=== PATIENT | male | born 1940 | race Caucasian/White ===

== ENCOUNTER → 2016-06-17 | Outpatient (CLI) | payer MEDICARE | LOC: GMAM 10:58 | PROVIDERS: ATTEND Family Medicine | DX: R31.29 Other microscopic hematuria (principal); Z12.5 Encounter for screening for malignant neoplasm of prostate | CPT/HCPCS: 87086; G0103 ==

== ENCOUNTER → 2016-07-12 | Outpatient (CLI) | payer MEDICARE | END | disposition home or self-care (01) | LOC: GMAM 11:06 | PROVIDERS: ATTEND Family Medicine | DX: N41.0 Acute prostatitis (principal); R97.20 Elevated prostate specific antigen [PSA] ==

== ENCOUNTER → 2016-12-29 | Outpatient (CLI) | payer MEDICARE | END | disposition home or self-care (01) | LOC: GMAM 10:28 | PROVIDERS: ATTEND Family Medicine | DX: R97.20 Elevated prostate specific antigen [PSA] (principal) ==

== ENCOUNTER → 2017-01-13 | Outpatient (CLI) | payer MEDICARE ==
--- NOTE | 2017-01-13 11:59 | MRI ---
EXAM DESCRIPTION: Lumbar Spine w/o Contrast CLINICAL HISTORY: 76 years, Male, LUMBAR RADICULOPATHY right leg pain COMPARISON: Plain radiograph January 05 FINDINGS: Sagittal and axial sequences. Left renal cyst about 4 x 2.5 cm. Normal bone marrow signal except for Modic type changes particularly at L2-3. Conus terminates at L1. Moderate right curvature probably degenerative. Narrowing L1-2 with bulging disc osteophyte asymmetric to the right. Facet degenerative change. Narrowing L2-3 with bulging disc osteophyte extends exit foramen bilaterally more on the left. Left foraminal narrowing. Facet degenerative change. Left lateral recess encroachment. At L3-4 narrowing with diffuse bulging disc extending into the exit foramen bilaterally more on the left. Severe facet degenerative change particularly on the right. Impingement on the right side of the thecal sac and right lateral recess. Mild central stenosis. Narrowing L4-5 with bulging disc osteophyte asymmetric to the left. Facet degenerative change. Impingement on the right lateral recess and exiting right L4 root. Mild bulge and facet degenerative change L5-S1. IMPRESSION: 1. Narrowing L3-4 with bulging disc osteophyte. Severe facet degenerative change. Impingement on the right-sided thecal sac and right lateral recess. Mild central stenosis. 2. Narrowing L4-5 with bulging disc osteophyte asymmetric to the left. Facet degenerative change. Impingement on the right lateral recess and exiting right L4 root 3. Other moderately advanced degenerative changes as discussed Electronically signed by: Mariano Riley MD 01/13/2017 11:58 AM CDT
== END | disposition home or self-care (01) ==
LOC: MRI 08:43
PROVIDERS: ATTEND Family Medicine
DX: M54.16 Radiculopathy, lumbar region (principal)

== ENCOUNTER → 2017-06-22 | Outpatient (CLI) | payer MEDICARE | LOC: GMAM 10:45 | PROVIDERS: ATTEND Family Medicine | DX: R97.20 Elevated prostate specific antigen [PSA] (principal) ==

== ENCOUNTER → 2018-03-21 | Outpatient (CLI) | payer MEDICARE ==
--- NOTE | 2018-03-21 17:16 | US ---
US THYROID CLINICAL STATEMENT: I25.10 AND E04.1. . No palpable mass. No thyroid surgery or therapy. COMPARISON: None FINDINGS: Size right thyroid lobe: 4.8 x 2.6 x 1.9 cm Size left thyroid lobe: 4.1 x 2.0 x 1.6 cm Size isthmus: 0.26 cm Estimated total number of nodules greater than or equal to 1 cm: 1 Nodule 1: Size: 1.3 x 1.1 x 0.8 cm Location: Right Lower Composition: solid or almost completely solid: 2 points Echogenicity: hypoechoic: 2 points Shape: wider than tall: 0 points Margins: smooth: 0 points Echogenic foci: none: 0 points ACR Total Points: 4; ACR TI-RADS risk category: TR4 - moderately suspicious nodule. Nodule 2: Size: 0.9 x 0.7 x 0.8 cm Location: Right Upper Composition: solid or almost completely solid: 2 points Echogenicity: hypoechoic: 2 points Shape: wider than tall: 0 points Margins: smooth: 0 points Echogenic foci: none: 0 points ACR Total Points: 4; ACR TI-RADS risk category: TR4 - moderately suspicious nodule. In the tissues surrounding the thyroid gland, no dominant abnormal solid mass, no distinct cyst. No abnormal calcification or parenchymal edema. Normal vascularity. Overlying skin is unremarkable. IMPRESSION: 1. Nodule 1: ACR TI-RADS 2017 Category TR4. Recommend: Follow-up. Recommendations according to [employer] Best [employer] recommendations, following ACR TI-RADS 2017 guidelines. Please see below*. 2. Nodule 2: ACR TI-RADS 2017 Category TR 4. Recommend: No further follow-up. 3. Soft tissue around the thyroid gland is unremarkable. *ACR TI-RADS 2017 Recommendations: TR1: No FNA or follow up TR2: No FNA or follow up TR3: FNA if >/= 2.5 cm, follow up if 1.5 - 2.4 cm in 1, 3, and 5 years TR4: FNA if >/= 1.5 cm, follow up if 1.0 - 1.4 cm in 1, 2, 3, and 5 years TR5: FNA if >/= 1.0 cm, follow up if 0.5 - 0.9 cm every year for 5 years ACR TI-RADS recommends that no more than two nodules with the highest ACR TI-RADS total point should be biopsied and no more than four nodules should be followed. Electronically signed by: Avel Mcgovern MD 03/21/2018 5:14 PM [facility]
--- NOTE | 2018-03-21 17:20 | US ---
EXAM DESCRIPTION: Extremity,Lower Carlos Arteries: Ultrasound. CLINICAL HISTORY: ATHEROSCLEROTIC DISEASE COMPARISON: Ultrasound of the thyroid gland on the same visit. TECHNIQUE: Doppler evaluation of the bilateral lower extremity arterial flow waveforms and velocities. FINDINGS: Arterial waveforms in the right lower extremity are triphasic from the right common femoral artery through the right posterior tibial artery. Monophasic in the right dorsalis pedis artery.. Arterial waveforms in the left lower extremity are triphasic from the left common femoral artery through the left popliteal artery. Biphasic in the left posterior tibial artery and peroneal artery. Blunted monophasic in the left dorsalis pedis artery.. Comments: Significant differential in velocity increased more than 200% in the right dorsalis pedis compared to the left. IMPRESSION: Velocity and waveform in the left or cells pedis artery is consistent with significant atherosclerotic occlusive disease in the proximal or distal left anterior tibial artery. Probably some degree of occlusive disease in the right proximal or distal anterior tibial artery. Consider correlation with bilateral lower extremity CTA. Electronically signed by: Avel Mcgovern MD 03/21/2018 5:19 PM [facility]
== END ==
LOC: US 09:56
PROVIDERS: ATTEND Family Medicine
DX: I25.10 Atherosclerotic heart disease of native coronary artery without angina pectoris (principal); E04.1 Nontoxic single thyroid nodule

== ENCOUNTER → 2018-07-11 | Outpatient (CLI) | payer MEDICARE | LOC: GMAM 12:00 | PROVIDERS: ATTEND Family Medicine | DX: E04.1 Nontoxic single thyroid nodule (principal); Z12.5 Encounter for screening for malignant neoplasm of prostate | CPT/HCPCS: 84439; 84443; G0103 ==

== ENCOUNTER → 2019-07-16 | Outpatient (CLI) | payer MEDICARE | LOC: GMAM 10:48 | PROVIDERS: ATTEND Family Medicine | DX: I10 Essential (primary) hypertension (principal); Z12.5 Encounter for screening for malignant neoplasm of prostate ==

== ENCOUNTER 2019-08-15 11:13 | Observation (INO) | payer MEDICARE ==
--- NOTE | 2019-08-15 11:36 | ED.PDOC ---
History of Present Illness - General Time Seen by Provider: 08/15/19 11:16 Source: patient, RN notes reviewed, Vital Signs reviewed Exam Limitations: no limitations - History of Present Illness Initial Comments: Pt is a 79 yo male with PMH of HTN who was sent to ED from clinic for COVID testing and possible anemia. States for the past 2 days, he has had crampy, lower abdominal pain and has vomited 8-10 times with nonbloody emesis. Also states he has had frequent loose stools the past 2 days that started off as "white colorred" then became dark and tarry and now are more normal colored. Denies fever, chills, cough, body aches, CP, SOB, near syncope. States he was concerned his symptoms were due to COVID 19 so went to clinic for test today and they told him he looked pale and to come to ED for evaluation of anemia and COVID testing. Pt is on BP meds, but takes no blood thinners. Allergies/Adverse Reactions: Allergies NO KNOWN ALLERGY Allergy (Verified 08/15/19 11:42) Review of Systems - Review of Systems Constitutional: Denies: chills, fever, weakness EENTM: Denies: nose congestion, throat pain Respiratory: Denies: cough, short of breath, wheezing Cardiology: Denies: chest pain, edema, palpitations, syncope Gastrointestinal/Abdominal: States: abdominal pain, diarrhea, nausea, vomiting Genitourinary: Denies: dysuria, frequency, hematuria Musculoskeletal: Denies: back pain, neck pain Skin: States: no symptoms reported Neurological: Denies: headache, paresthesia Hematologic/Lymphatic: Denies: easy bleeding, easy bruising All other Systems: Reviewed and Negative Family Medical History - Family History Father Family History: No Known Living Status: Hx Family Asthma: No Hx Family Congestive Heart Failure: No Hx Family Hypertension: Yes Hx Family Stroke: Yes Hx Cardiac Disease: Yes Hx Family Diabetes: No Hx Family Cancer: Yes - MOTHER Hx Family;Other: FATHER FROM [place] AND MOTHER FROM CANCER Physical Exam - Physical Exam General Appearance: Alert, No apparent distress, Well Developed, Well Groomed Ears, Nose, Throat: normal pharynx Neck: non-tender, full range of motion, supple Respiratory: chest non-tender, lungs clear, normal breath sounds, no respiratory distress, no accessory muscle use Cardiovascular/Chest: no edema, no JVD, no murmur, irregularly irregular Gastrointestinal/Abdominal: soft, no pulsatile mass, other - Mild TTP left abdomen. No guarding Rectal Exam: other - No hemorrhoids. Light brown stool with streks of BRB Back Exam: normal inspection, no CVA tenderness, no vertebral tenderness Extremity: non-tender, normal inspection, no pedal edema Neurologic: no motor/sensory deficits, alert, normal mood/affect, oriented x 3 Skin Exam: normal color, warm/dry Progress - Progress Progress: 08/15/19 13:18 I have discussed with Dr. garcia, pt PCP. Pt has new onset afib and GI bleed. He is rate controlled in afib and VS have been stable. Recommends no anticoagulation at this time due to GI bleed and admit to hospitalist for observation. Pt is agreeable to admission. 08/15/19 13:22 D/W Tim Torres, he will place in Obs. 08/15/19 13:25 Pt prresents to ED from clinic with 2 day h/o crampy abdominal pain, N/V, loose stools and dark colored stools. Hgb 12.8. Pt is in new onset afib and has been rrate controlled in ED w/o medications. CT shows thickened wall of distal stomach. possibly has gastrittis causing upper GI bleed. He is stable at this time. i have d/w his PCP and recommends obs admission and trend H/H. He rrecommends not starting anticoagulation at this time for afib due to GI bleed and they will evaluate for this during obs admission. - Results/Orders Results/Orders: CT A/P IMPRESSION: Thick-walled distal stomach. See above. Mild edematous changes around the pancreas. Correlate with serum amylase and lipase values. 08/15/19 11:30 IV:Start .ONCE 08/15/19 11:31 Hold Metformin x 48Hrs [id number] 08/15/19 11:45 EKG .ONCE 08/15/19 11:55 SARS-COV2 PCR HIGH RISK Stat Laboratory Results - last 24 hr 08/15/19 08/15/19 08/15/19 11:40 11:40 11:40 WBC 14.1 H RBC 4.25 L Hgb 12.8 L Hct 38.5 L MCV 90.6 MCH 30.1 MCHC 33.2 RDW 13.3 Plt Count 221 MPV 8.6 Absolute Neuts (auto) 11.60 H Absolute Lymphs (auto) 1.40 Absolute Monos (auto) 1.00 H Absolute Eos (auto) 0.00 Absolute Basos (auto) 0.10 Neutrophils % 82.1 H Lymphocytes % 9.8 L Monocytes % 7.4 Eosinophils % 0.2 L Basophils % 0.5 PT 10.7 INR 1.08 PTT (SP) 23.9 Sodium 134 L Potassium 3.9 Chloride 102 Carbon Dioxide 23 Anion Gap 12.9 BUN 30 H Creatinine 1.35 H BUN/Creatinine Ratio 22.2 H Random Glucose 135 H Serum Osmolality 276.5 Calcium 9.6 Total Bilirubin 1.0 AST 22 ALT 19 Alkaline Phosphatase 71 Troponin I Serum Total Protein 7.3 Albumin 4.1 Globulin 3.2 Albumin/Globulin Ratio 1.3 Lipase Urine Color Urine Appearance Urine pH Ur Specific [place] Urine Protein Urine Glucose (UA) Urine Ketones Urine Blood Urine Nitrite Urine Bilirubin Urine Urobilinogen Ur Leukocyte Esterase Urine RBC Urine WBC Ur Epithelial Cells Urine Bacteria Stool Occult Blood 08/15/19 08/15/19 08/15/19 11:40 11:40 11:47 WBC RBC Hgb Hct MCV MCH MCHC RDW Plt Count MPV Absolute Neuts (auto) Absolute Lymphs (auto) Absolute Monos (auto) Absolute Eos (auto) Absolute Basos (auto) Neutrophils % Lymphocytes % Monocytes % Eosinophils % Basophils % PT INR PTT (SP) Sodium Potassium Chloride Carbon Dioxide Anion Gap BUN Creatinine BUN/Creatinine Ratio Random Glucose Serum Osmolality Calcium Total Bilirubin AST ALT Alkaline Phosphatase Troponin I < 0.02 Serum Total Protein Albumin Globulin Albumin/Globulin Ratio Lipase 27 Urine Color Urine Appearance Urine pH Ur Specific [place] Urine Protein Urine Glucose (UA) Urine Ketones Urine Blood Urine Nitrite Urine Bilirubin Urine Urobilinogen Ur Leukocyte Esterase Urine RBC Urine WBC Ur Epithelial Cells Urine Bacteria Stool Occult Blood Positive 08/15/19 12:30 WBC RBC Hgb Hct MCV MCH MCHC RDW Plt Count MPV Absolute Neuts (auto) Absolute Lymphs (auto) Absolute Monos (auto) Absolute Eos (auto) Absolute Basos (auto) Neutrophils % Lymphocytes % Monocytes % Eosinophils % Basophils % PT INR PTT (SP) Sodium Potassium Chloride Carbon Dioxide Anion Gap BUN Creatinine BUN/Creatinine Ratio Random Glucose Serum Osmolality Calcium Total Bilirubin AST ALT Alkaline Phosphatase Troponin I Serum Total Protein Albumin Globulin Albumin/Globulin Ratio Lipase Urine Color Yellow Urine Appearance Clear Urine pH 5.0 Ur Specific [place] 1.015 Urine Protein Negative Urine Glucose (UA) Negative Urine Ketones Negative Urine Blood Negative Urine Nitrite Negative Urine Bilirubin Negative Urine Urobilinogen 0.2 Ur Leukocyte Esterase Negative Urine RBC 0 Urine WBC 0 Ur Epithelial Cells 0-1 Urine Bacteria 0 Stool Occult Blood - EKG/XRAY/CT Comments: Atrial fibrillation, rate 64. NML QRS interval. No ST abnormality Departure - Departure Clinical Impression: New onset atrial fibrillation Gastrointestinal bleed Qualifiers: GI bleed type/associated pathology: unspecified gastrointestinal hemorrhage type Qualified Code(s): K92.2 - Gastrointestinal hemorrhage, unspecified Anemia Qualifiers: Anemia type: unspecified type Qualified Code(s): D64.9 - Anemia, unspecified Abdominal pain Qualifiers: Abdominal location: generalized Qualified Code(s): R10.84 - Generalized abdominal pain Time of Disposition: 13:24 Disposition: Admit Patient Condition: Fair Referrals: Thiago Garcia MD [Primary Care Provider] - 1-2 Weeks Decision To Admit - Decistion To Admit Decision to Admit Reason: Admit from ER Decision to Admit Date: 08/15/19 - n Decision to Admit Time: 13:23
--- NOTE | 2019-08-15 13:04 | CT ---
EXAM DESCRIPTION: CT ABDOMEN AND PELVIS WITH CONTRAST CLINICAL HISTORY: left abd pain, vomiting, blood in stool COMPARISON: None Available. TECHNIQUE: CT of the abdomen and pelvis are performed during IV bolus administration of routine adult dose of nonionic iodinated IV contrast. No oral contrast was administered. FINDINGS: In the lower chest, the lung bases are clear. Heart size is prominent with moderate coronary calcification. CT abdomen Thick-walled appearance of the distal stomach could be gastritis. No ulcer is identified in this area. Correlate with endoscopic findings if indicated. The relatively low density appearance suggests edema of the gastric wall more likely than infiltrating neoplasm. Mild edematous changes around the pancreas. Correlate with serum amylase and lipase values. Duodenal bulb is prominent and fluid-filled. The liver, spleen, gallbladder, adrenal glands and right kidney are normal in appearance. Left kidney contains a cyst 4.3 cm. Tiny cysts in the lower cortex of the right kidney. No renal stones or hydronephrosis. No bowel dilatation to suggest obstruction. No free air or free fluid. CT pelvis Appendix appears normal. No inflammation around the cecum or terminal ileum or sigmoid colon. Bladder and distal ureters are negative for stones. Normal enhancement of pelvic vessels. No inguinal or lower pelvic adenopathy. Large prostate measures 5.1 cm in transverse dimension with moderate invagination of the bladder base. Lateral wall appears thickened. Bone window images are negative for fracture or lytic lesion. Advanced degenerative disc disease in the lumbar spine. Coronal and sagittal reformatted images confirm the findings. IMPRESSION: Thick-walled distal stomach. See above. Mild edematous changes around the pancreas. Correlate with serum amylase and lipase values. This exam was performed according to our departmental dose-optimization program, which includes automated exposure control, adjustment of the mA and/or kV according to patient size and/or use of iterative reconstruction technique. Total DLP equals 2822.47 mGycm. Electronically signed by: Valdez Zaragoza MD 08/15/2019 1:03 PM CDT
--- NOTE | 2019-08-15 13:53 | HP ---
SUPERVISING PHYSICIAN: Thiago Moses MD CHIEF COMPLAINT: Dark stools. HISTORY OF PRESENT ILLNESS: This is a 79 year-old male patient who had some nausea and vomiting that started yesterday around 3 o'clock. He states he started to have bowel movements that were first white in color but then turned to dark black. He was to see his primary care physician today who then referred him to Emergency Room for concern for a GI bleed. The patient was also concerned that he may have COVID-19 so therefore he was referred for testing for that as well. When he came to the Emergency Room he had a CT scan of the abdomen and pelvis that showed thick-walled distal stomach and mild edematous changes around the pancreas. Otherwise, there were no abnormalities. His lab showed a leukocytosis of 14,000 with a left shift of 82.1. Coagulations were normal, troponin negative. Mild elevation of BUN and creatinine to 30 and 1.35 respectively. He was guaiac positive as well, therefore, he was referred for admission to watch for precipitous drops in hemoglobin. He was also noted to have a new onset of atrial fibrillation, although the rate is controlled. He has not had any history of atrial fibrillation and not on any anticoagulation at this time. On examination, the patient is alert and oriented with no distress. PAST MEDICAL HISTORY: 1. Hypertension. 2. Hyperlipidemia. 3. Coronary artery disease. 4. Myocardial infarction in the past. 5. Peripheral vascular disease. PAST SURGICAL HISTORY: 1. Bilateral cataract removal. 2. PTCA stent. 3. Index finger fracture repair. 4. Hernia repair. CURRENT MEDICATIONS: Please see med rec list once verified in the computer. ALLERGIES: No known drug allergies. FAMILY HISTORY: Father at age 55 of [place]. Mother at age 68 of breast cancer. Two sisters, one from lung cancer. SOCIAL HISTORY: The patient is a nondrinker, nonsmoker, no illicit drugs. REVIEW OF SYSTEMS: CONSTITUTIONAL: No fever or chills, no recent weight loss or weight gain. HEENT: No headaches, vision changes, ear pain, sore throat, nasal congestion. CHEST: No cough, hemoptysis or pleuritic chest pain. . HEART: No chest pain, palpitations, edema. ABDOMEN: Positive for nausea and vomiting, abdominal pain. He did have some loose stools which were dark in color. ENDOCRINE: No polydipsia, polyuria, polyphagia, no heat or cold intolerance. GENITOURINARY: Denies dysuria, frequency or flank pain. . HEMATOLOGIC: No easy bruising or transfusion reaction. SKIN: No rashes, lesions or wounds. . NEUROLOGIC: No syncope, paresthesias or seizures. PHYSICAL EXAMINATION: VITAL SIGNS: Blood pressure 130/63, heart rate 70, respirations 20, temperature 99.0, oxygen saturation 100%. GENERAL: This is a 79 year-old male patient in no acute distress at this time. HEENT: The patient is awake, alert, and oriented. CHEST: Lungs are clear to auscultation bilaterally. CARDIOVASCULAR: Regular rate and rhythm, normal S1, S2. ABDOMEN: Soft, positive bowel sounds. No tenderness to palpation. EXTREMITIES: No edema, 2+ pulses, capillary refill less than 2 second. Labs and films are discussed in the history of present illness. ASSESSMENT: 1. Upper GI bleed. 2. Mild anemia. 3. Hypertension. 4. Hyperlipidemia. 5. New onset atrial fibrillation. 6. Acute kidney injury. 7. Acute gastroenteritis. PLAN: The patient will be admitted and we will do serial H&H. I will put him on some light IV fluids. He does have a history of diastolic heart failure with an ejection fraction of 55% on last echocardiogram but it showed grade 2 diastolic dysfunction. No anticoagulation for now. His rate is controlled so no active treatment for the atrial fibrillation. If he does have drops in his hemoglobin would schedule an EGD. Will hold off on any DVT prophylaxis given the positive guaiac. Put him on b.i.d. PPI and resume his home medications as well. #[id number] [facility]
[2019-08-15] MEDS ORDERED: SODIUM CHLORIDE 0.9% (FLUSH) 10 ML SYG IV PRN (14:48)
[2019-08-15] MEDS ORDERED: traMADol HCL 50 MG TAB PO PRN (14:52)
[2019-08-15] MEDS ORDERED: IV SET AND CAP CHANGE INJ INJ SCH (15:00)
[2019-08-15] MEDS: PANTOPRAZOLE SODIUM IV 40 MG VIAL IV SCH (15:42)
[2019-08-15] MEDS: LACTATED RINGERS 1,000 ML IVS PRN (15:43)
[2019-08-16] MEDS: PANTOPRAZOLE SODIUM IV 40 MG VIAL IV SCH (03:16)
[2019-08-16] MEDS: LACTATED RINGERS 1,000 ML IVS PRN (03:16)
[2019-08-16] MEDS ORDERED: ENALAPRIL MALEATE 5 MG TAB PO SCH (09:00)
[2019-08-16] MEDS ORDERED: NON-FORMULARY MEDICATION 1 EA MIS (Atenolol [Tenormin] 50 MG) PO SCH (09:00)
[2019-08-16] MEDS ORDERED: NON-FORMULARY MEDICATION 1 EA MIS (Enalapril Maleate [Enalapril Maleate] 20 MG) PO SCH (09:00)
[2019-08-16] MEDS ORDERED: ATORVASTATIN 20 MG TAB PO SCH (09:00)
[2019-08-16] MEDS ORDERED: ATENOLOL 25 MG TAB PO SCH (09:00)
[2019-08-16] MEDS ORDERED: amLODIPine BESYLATE 5 MG TAB PO SCH (09:00)
[2019-08-16] MEDS ORDERED: NON-FORMULARY MEDICATION 1 EA MIS (Atorvastatin Calcium [Atorvastatin Calcium] 40 MG) PO SCH (09:00)
[2019-08-16 10:09] VITALS: BP 155/89; TEMP 97.8; O2SAT 100
--- NOTE | 2019-08-16 15:22 | DS ---
SUPERVISING PHYSICIAN: Thiago Moses MD DISCHARGE DIAGNOSIS: 1. Upper gastrointestinal bleed. 2. Mild anemia. 3. Hypertension. 4. Hyperlipidemia. 5. Questionable new onset of atrial fibrillation. 6. Acute kidney injury. 7. Acute gastroenteritis. HISTORY OF PRESENT ILLNESS: This is a 79-year-old male patient who had some nausea and vomiting that started on the day of admission. He said his bowel movements initially were white in color but then turned to dark black. He went to see his primary care physician on the day of admission who then referred him to Emergency Room for concern for a GI bleed. The patient was also concerned that he may have COVID-19 and was referred for testing for that as well. In the Emergency Room, he had a CT scan of the abdomen and pelvis that showed thick- walled distal stomach and mild edematous changes around the pancreas. Otherwise, there were no abnormalities. His lab showed a leukocytosis of 14,000 with BUN 30 and creatinine 1.35. He was guaiac positive and was referred for admission to watch for precipitous drop in hemoglobin. He was also noted to have a new onset of atrial fibrillation, although the rate is controlled. He has not had any history of atrial fibrillation and not on any anticoagulation at the time of admission. The patient was placed in observation in stable condition. HOSPITAL COURSE: He was placed in observation to do serial H&Hs. His vital signs remained stable. His H&H remained stable. He was given some judicious IV fluids. His last echocardiogram showed diastolic heart failure with an ejection fraction of 55% with grade 2 diastolic dysfunction. At this point, his EKG shows sinus rhythm with PACs. No anticoagulation was given. SCDs were utilized for DVT prophylaxis as well as his home medications were resumed. He had a proton pump inhibitor for ulcer prophylaxis. He will be discharged home today in stable condition. LABORATORY: WBCs this morning were 12,900. Hemoglobin and hematocrit started at 12.8 and 38.5. They dropped as low as 11.6 and 35.3. This morning, hemoglobin is 12.8 and hematocrit 38.2. PT, PTT were within normal limits. Sodium was slightly low at 133. The remainder of his electrolytes were within normal limits. BUN 23 and creatinine 1.35. Urinalysis was unremarkable. Stool for occult blood was positive. RADIOLOGY: His abdominopelvic CT is per the history of present illness. DISCHARGE PLAN: The patient will be discharged home in stable condition. He is to resume his previous diet and increase his activity as tolerated. He is to restart his home medications as previously ordered. He will have a followup with Dr. Moses on 08/23/19 at 9:00 am. He is to report early for some lab working including a CBC. I will send him home on cardiac monitoring and he will have that for 15 days. His cardiac monitoring can also be reviewed at his office visit. We will hold on any anticoagulation as his EKG shows sinus rhythm with PACs. He is to return to the hospital or followup with Dr. Moses's office for any problems or complications. #[id number] [facility]
== END 2019-08-16 14:59 | disposition home or self-care (01) ==
LOC: ER 11:13 → MS 13:50
PROVIDERS: ADMIT Nurse Practitioner; ATTEND Nurse Practitioner Acute Care
DX: K92.2 Gastrointestinal hemorrhage, unspecified (principal); D50.0 Iron deficiency anemia secondary to blood loss (chronic); I11.0 Hypertensive heart disease with heart failure; E78.2 Mixed hyperlipidemia; N17.9 Acute kidney failure, unspecified; K52.9 Noninfective gastroenteritis and colitis, unspecified; I49.3 Ventricular premature depolarization; E87.1 Hypo-osmolality and hyponatremia; D72.829 Elevated white blood cell count, unspecified; I50.32 Chronic diastolic (congestive) heart failure; I25.10 Atherosclerotic heart disease of native coronary artery without angina pectoris; I25.2 Old myocardial infarction; I73.9 Peripheral vascular disease, unspecified; Z79.899 Other long term (current) drug therapy; Z95.5 Presence of coronary angioplasty implant and graft; Z87.891 Personal history of nicotine dependence; Z82.49 Family history of ischemic heart disease and other diseases of the circulatory system; Z80.3 Family history of malignant neoplasm of breast; Z80.1 Family history of malignant neoplasm of trachea, bronchus and lung
CPT/HCPCS: 96361 ×2; 96374; 96376; J7120 ×2; 80048; 82270; 80053; 85014 ×3; 85018 ×3; 36415 ×5; 81001; 85025 ×2; 83690; 85730; 85610; 84484; 74177; 99285; 93005; 93229; G0378; U0002

== ENCOUNTER → 2019-08-24 | Outpatient (CLI) | payer MEDICARE | LOC: GMAM 11:35 | PROVIDERS: ATTEND Family Medicine | DX: N17.9 Acute kidney failure, unspecified (principal); I10 Essential (primary) hypertension ==

== ENCOUNTER → 2020-02-11 | Outpatient (CLI) | payer MEDICARE | LOC: GMAM 11:03 | PROVIDERS: ATTEND Family Medicine | DX: E04.1 Nontoxic single thyroid nodule (principal); I10 Essential (primary) hypertension; D52.9 Folate deficiency anemia, unspecified; D64.9 Anemia, unspecified; E29.9 Testicular dysfunction, unspecified ==

== ENCOUNTER → 2020-05-02 | Outpatient (CLI) | payer MEDICARE | LOC: LAB.O 08:56 | PROVIDERS: ATTEND Internal Medicine Hematology & Oncology | DX: D47.2 Monoclonal gammopathy (principal) ==

== ENCOUNTER → 2020-05-05 | Outpatient (CLI) | payer MEDICARE ==
--- NOTE | 2020-05-05 16:15 | RAD ---
EXAM DESCRIPTION: Metastatic Series CLINICAL HISTORY: 80 years Male, MGUS COMPARISON: None. Findings: 30 view(s)/radiograph(s) No suspicious osseous lesion. No acute fracture or dislocation. No focal soft tissue swelling. Multilevel spinal spondylosis. Moderate scattered degenerative changes. Vascular calcifications. Moderate to severe bilateral hip osteoarthritis. IMPRESSION: No suspicious osseous lesion identified. Electronically signed by: Carl Carter MD 05/05/2020 4:13 PM [facility]
== END ==
LOC: NM 09:00
PROVIDERS: ATTEND Internal Medicine Hematology & Oncology
DX: D47.2 Monoclonal gammopathy (principal)